=== PATIENT | male | born 1965 | race Caucasian/White ===

== ENCOUNTER 2017-02-05 13:27 | Inpatient (IN) | payer BC ==
--- NOTE | ~2017-02-05 | DS ---
Discharge Summary [place] [id number] [facility] [place]. [address] NAME: IDALIA NJ : 61 STATUS : DIS Charlene PAT#: [id number] AGE: 51 ADM/REG DATE : 02/05/17 MR#: [id number] REPORT SERV DATE: 02/08/17 DICTATED BY: JR. CALHOUN WILLIAM JOHN DATE: 02/07/17 REPORT STATUS : Draft TRANSCRIBED BY: RAMA DATE: 02/07/17 ADMISSION DATE: 02/05/2017 DISCHARGE DATE: 02/07/2017 DISCHARGE DIAGNOSES: Include: 1. New-onset diabetes mellitus with diabetic ketoacidosis with a hemoglobin A1c of 10.9. 2. Hypokalemia. 3. Acute kidney injury, which is resolved. 4. Hypothyroidism. 5. Hyponatremia. OPERATIONS/PROCEDURES AND TREATMENTS: Include: 1. Portable chest x-ray done 02/05/2017, which showed no acute cardiopulmonary abnormality. 2. Diabetic education. DISCHARGE MEDICATION: Include: 1. Humalog FlexPen 10 units before meals, holding for premeal finger blood sugar less than 100. 2. Sliding scale Humalog insulin level 2. 3. Synthroid 250 mcg every morning. 4. Lisinopril/hydrochlorothiazide 20/25, one tablet orally daily. 5. Singulair 10 mg orally daily. 6. Omeprazole 20 mg orally twice a day. 7. Zocor 20 mg orally daily. 8. Lantus insulin 30 units at bedtime. 9. Metformin 500 b.i.d. HOSPITAL COURSE: The patient is a 51-year-old white male with past medical history of hypothyroidism, kidney stones, and hypertension, who has had increased dizziness, nausea, and decreased oral intake as well as 20 pounds weight loss over the preceding months. He had been also experiencing polydipsia and polyuria. He had recently been started on metformin, but came to the emergency room for further assistance. On admission, his temperature was 97.6, blood pressure 117/61, heart rate 71, respiratory rate 16. Exam was overall unremarkable, except high anion gap, low bicarbonate, and low sodium. For exact details of the admission history, physical, and presenting data, please see Dr. Wilkinson's dictated history and physical. The patient was admitted to the Clinical Decision Unit. He was started on Levemir insulin 12 units at night with 5 units of Humalog before meals on a sliding scale. He also was given IV fluids and frequent electrolyte collection. The patient's anion gap resolved quickly on this regimen; however, his blood sugars were still under poor control. I increased his long-acting insulin to 30 units at the hour of sleep, premeal to 10 units, and sliding scale level 3. With this regimen, the patient's blood sugars were generally in the 150-250 range. The patient was seen by diabetic education, received teaching. He will be discharged home to follow up with his primary care physician, Dr. Pradeep Moore. Discharge Summary [address] [place]. [address] NAME: IDALIA NJ : 61 STATUS : DIS Charlene PAT#: [id number] AGE: 51 ADM/REG DATE : 02/05/17 MR#: [id number] REPORT SERV DATE: 02/08/17 DICTATED BY: JR. CALHOUN WILLIAM JOHN DATE: 02/07/17 REPORT STATUS : Draft TRANSCRIBED BY: RAMA DATE: 02/07/17 As the patient's acute kidney injury, this resolved with IV fluids. As the patient's hypertension, he was maintained on his HAIM inhibitor and hydrochlorothiazide. The remainder of the patient's health problems remained stable. In addition, he will be discharged home today, 02/07/2017 in good condition and will follow up with Dr. Pradeep Moore in one week. DISCHARGE DIET: ADA diet. ACTIVITY: As tolerated. For discharge exam and laboratory, please see daily progress note. WJF/RAMA Alex Calhoun Jr, MD / [id number] CC: Alex Calhoun Jr, MD R. Edward [place]ers
--- NOTE | ~2017-02-05 | HP ---
History And Physical [place] [id number] [facility] [place]. [address] NAME: IDALIA NJ : 61 STATUS : ADM Charlene PAT#: [id number] AGE: 51 ADM/REG DATE : 02/05/17 MR#: [id number] REPORT SERV DATE: 02/05/17 DICTATED BY: YULIANA WILKINSON DATE: 02/05/17 REPORT STATUS : Draft TRANSCRIBED BY: MODSheri DATE: 02/05/17 DATE OF ADMISSION: 02/05/2017 CHIEF COMPLAINT: High blood sugars and feeling sick. HISTORY OF PRESENT ILLNESS: The patient is a 51-year-old male with past medical history of hypothyroidism, kidney stones, and hypertension, who reports over the last few weeks that he has been feeling increased dizziness, sick to the stomach with decreased p.o. intake. He has also noticed that he has had a 20-pound weight loss and has had recently changed from drinking diet sodas to water but reports he has been drinking an increased amount of water which has kept him waking up at night. He believes that because he was drinking so much water and wake up at night, he thought that this was the cause for his weakness and overall just generalized fatigue. The patient was recently started on metformin approximately 48 hours ago but was still having dizziness episodes today and found to have a blood sugar in the 400 plus. Symptoms for this type dizziness extreme have been occurring for approximately last week and this generalized weakness. No pain. Symptoms were of moderate severity. No radiating symptoms. No pressure, cramping, sharp burning pain associated with mild decreased intake. No headaches, nausea, or vomiting, but did have increased urination and polydipsia. No diarrhea, fevers, weakness, cough, or infections. No recent respiratory infections or boils reported. Did have gastroenteritis approximately a month ago that has self resolved. Symptoms are not worsened by anything but no relieving symptoms. Additional 10-point review of systems negative except that noted in the HPI. PAST MEDICAL HISTORY: Hypertension, kidney stones, and thyroid. No surgeries. SOCIAL HISTORY: No smoking, alcohol, or illicits. Works at [employer] but no radiation contact per patient. ALLERGIES: TO PENICILLIN WHICH CAUSED A RASH WHEN HE WAS YOUNG. FAMILY HISTORY: Noted for coronary disease and hypertension in the family members. HOME MEDICATIONS: Pepto-Bismol. Synthroid increased from 125 mcg to 250 recently, does have followup in approximately three weeks for followup. Zestoretic. Glucophage. Singulair. Prilosec. Zocor. PHYSICAL EXAMINATION: VITAL SIGNS: The patient's blood pressure is 117/61, temperature 97.6, pulse 71, respirations 16, and O2 sats 99%. Orthostatic blood pressures within normal limits. GENERAL: No acute distress. Calm, pleasant, obese, well developed, well nourished. HEENT: Eyes, no scleral icterus. EOMI. ENT, dry mucous membranes. Tongue midline. RESPIRATORY: Clear to auscultation. No wheezes, rales, or rhonchi. CV: Regular rate. No rubs or gallops. No pedal edema. GI: Soft, nontender, and nondistended. Bowel sounds positive. History And Physical [address] [address] NAME: IDALIA NJ : 61 STATUS : ADM Charlene PAT#: [id number] AGE: 51 ADM/REG DATE : 02/05/17 MR#: [id number] REPORT SERV DATE: 02/05/17 DICTATED BY: YULIANA WILKINSON DATE: 02/05/17 REPORT STATUS : Draft TRANSCRIBED BY: RAMA DATE: 02/05/17 : Deferred. MUSCULOSKELETAL: Moves all extremities x4. Sensation is still grossly intact in lower extremities. Moves all extremities x4 with equal strength. SKIN: Warm and dry. LYMPH: No cervical or supraclavicular lymphadenopathy. HEME: No bleeding or bruising. NEUROLOGIC: Symmetrical smile, vocal gerber. Strength in upper and lower extremities bilaterally. No asterixis or resting tremor. Sensations in lower extremities to light palpation, equal bilaterally with no lesions on lower extremities. PSYCHIATRIC: Appropriate mood and affect. LABORATORY DATA: Sodium 130 with a glucose of 409, corrects to approximately 135 to 137, BUN and creatinine 28 and 1.36, chloride 90, potassium 3.5, bicarb 16, H and H 15.1 and 42.4 with a WBC of 10.9 and platelets 344. Moderate acetone in blood UA and no leukocyte esterase or nitrites. Chest x-ray, no acute cardiopulmonary findings. A pH on ABG 7.34, pCO2 of 25, O2 of 103, and bicarb 13.2. ASSESSMENT AND PLAN: 1. New onset diabetic ketoacidosis. 2. Acute kidney injury. 3. Hypertension. 4. Hypothyroidism. 5. Pseudohyponatremia. 6. Hypokalemia. PLAN: 1. For DKA, the patient was a new diagnosis for diabetes, started on metformin; however, we will need to start Levemir sliding scale insulin with meals. The patient has had fairly good improvement with insulin without drip as hepatitis starting to return. Blood sugar down to 200s. We will do serial BMP monitoring. Initiated long-acting with sliding scale insulin and monitor bicarb for resolution of DKA symptoms. 2. NARDA. IV fluids. Treat underlying DKA. Check urine lytes, on HAIM inhibitor and HCTZ, likely volume depleted with positive ketones and glucosuria. Monitor clinically. 3. Hypertension on HAIM inhibitor and HCTZ. 4. Hypothyroidism on Synthroid, recently increased, understands, continued to have close followup with PCP. 5. Pseudohyponatremia. When corrected, first blood sugar corrects to 135 and 137. We will continue to monitor. 6. Hypokalemia. Replace p.o. as tolerated and also serial monitor in the presence of mild DKA. All questions were answered with the patient and family at bedside. DDN/MODL Yuliana Wilkinson MD History And Physical [address] [address] NAME: IDALIA NJ : 61 STATUS : ADM Charlene PAT#: [id number] AGE: 51 ADM/REG DATE : 02/05/17 MR#: [id number] REPORT SERV DATE: 02/05/17 DICTATED BY: YULIANA WILKINSON DATE: 02/05/17 REPORT STATUS : Draft TRANSCRIBED BY: MODL DATE: 02/05/17 / [id number] CC: Emery Diane MD
[2017-02-05 11:37] LABS: BASOPHILS 0.1 %; BASOPHILS ABSOLUTE 0.01 10/3/uL (0.0-0.16); EOSINOPHILS 0 %; HEMATOCRIT 42.4 % (40.0-51.0); HEMOGLOBIN 15.1 g/dL (13.6-17.8); IMMATURE GRANULOCYTES 0.5 %; IMMATURE GRANULOCYTES ABSOLUTE 0.06 10/3/uL (0.0-0.11); LYMPHOCYTES 11.2 %; LYMPHOCYTES ABSOLUTE 1.23 10/3/uL (0.67-4.30); MEAN CORPUS HGB CONC 35.6 g/dL (32.0-36.0); MEAN CORPUSCULAR HEMOGLOB 29.7 pg (26.0-34.0); MEAN CORPUSCULAR VOLUME 83.5 fL (80-100); MEAN PLATELET VOLUME 10.6 fL (9.2-13.0); MONOCYTES 7.2 %; MONOCYTES ABSOLUTE 0.79 10/3/uL (0.21-1.20); NEUTROPHILS ABSOLUTE 8.85 10/3/uL (2.02-8.40); PLATELET COUNT 344 10/3/uL (150-400); RBC DISTRIBUTION WIDTH 12.2 % (12.0-16.0); RED CELL COUNT 5.08 10/6/uL (4.7-6.1); WHITE BLOOD CELLS 10.9 10/3/uL (4.5-10.5)
[2017-02-05 11:38] LABS: MANUAL DIFF NO %
[2017-02-05 11:43] LABS: ASCORBIC ACID (UR NOT ORDER) NEG (NEG); BILIRUBIN, URINE NEGATIVE (NEG); ER URINALYSIS TAT 0 Hrs 12 Mins; KETONE, URINE 80 MG/DL (NEG); LEUKOCYTE ESTERASE(NOT OR NEG (NEG); NITRITE (URINE) NEG (NEG); WBC (NOT ORDERED) (RFLEX) 1 (0-5)
[2017-02-05 11:50] LABS: ACETONE MODERATE
[2017-02-05 11:59] LABS: A/G RATIO 1.4 (0.7-1.9); ALBUMIN 4.4 G/DL (3.5-5.0); ALKALINE PHOSPHATASE 120 U/L (45-117); BUN (BLOOD UREA NITROGEN) 28 MG/DL (6-23); CALCIUM, SERUM 9.2 MG/DL (8.5-10.4); CHLORIDE, SERUM 90 MMOL/L (96-112); CO2 (CARBON DIOXIDE) 16 MMOL/L (24-34); CREATININE 1.36 MG/DL (0.70-1.30); GFR AFRICAN AMERICAN 68 ML/MIN (>=60); GFR NON AFRICAN AMERICAN 59 ML/MIN (>=60); GLOBULIN 3.1 G/DL (2.5-4.1); POTASSIUM, SERUM 3.5 MMOL/L (3.5-5.3); SGOT(AST) 6 U/L (5-40); SGPT(ALT) 25 U/L (5-65); SODIUM, SERUM 130 MMOL/L (135-148); TOTAL BILIRUBIN 1.3 MG/DL (0-1.2); TOTAL PROTEIN 7.5 G/DL (6.0-8.5)
[2017-02-05 12:00] LABS: GLUCOSE, SERUM 409 MG/DL (60-99)
[~2017-02-05 13:27] MED LIST: GLUCPH PO; PEPTO BISMOL LIQ1 ML PO; PRILO PO; SINGULAIR1 PO; SYNTHROID200 MCG PO; ZESTORETIC1 TA1 PO; ZOCOR20 PO
[2017-02-05 14:33] LABS: BE (BASE EXCESS) -10.6 MEQ/L (0 +/- 2.5); HCO3 (ACTUAL BICARBONATE) 13.2 MEQ/L (23-27); HEMOBLOGIN CONTENT 14.9 G/DL (14-18); INSTRUMENT SERIAL # 8087; METHEMOGLOBIN 0.2 % (0-3); O2 CONTENT 20.3 VOL% (18-24); PCO2 (CO2 TENSION) 25 MMHG (35-45); PO2 (O2 TENSION) 103 MMHG (79-93); SAMPLE Arterial; pH 7.34 (7.37-7.43)
[2017-02-05 20:12] LABS: BUN (BLOOD UREA NITROGEN) 25 MG/DL (6-23); CALCIUM, SERUM 9.1 MG/DL (8.5-10.4); CHLORIDE, SERUM 96 MMOL/L (96-112); CO2 (CARBON DIOXIDE) 17 MMOL/L (24-34); CREATININE 1.24 MG/DL (0.70-1.30); GFR AFRICAN AMERICAN 76 ML/MIN (>=60); GFR NON AFRICAN AMERICAN 66 ML/MIN (>=60); POTASSIUM, SERUM 3.6 MMOL/L (3.5-5.3); SODIUM, SERUM 133 MMOL/L (135-148)
[2017-02-05 20:13] LABS: GLUCOSE, SERUM 293 MG/DL (60-99)
[2017-02-06 05:48] LABS: BUN (BLOOD UREA NITROGEN) 22 MG/DL (6-23); CALCIUM, SERUM 8.7 MG/DL (8.5-10.4); CHLORIDE, SERUM 101 MMOL/L (96-112); CO2 (CARBON DIOXIDE) 20 MMOL/L (24-34); CREATININE 1.05 MG/DL (0.70-1.30); GFR AFRICAN AMERICAN 93 ML/MIN (>=60); GFR NON AFRICAN AMERICAN 81 ML/MIN (>=60); POTASSIUM, SERUM 3.7 MMOL/L (3.5-5.3); SODIUM, SERUM 133 MMOL/L (135-148)
[2017-02-06 05:49] LABS: GLUCOSE, SERUM 178 MG/DL (60-99)
[2017-02-06 07:00] LABS: BASOPHILS 0.2 %; BASOPHILS ABSOLUTE 0.02 10/3/uL (0.0-0.16); EOSINOPHILS 0.7 %; EOSINOPHILS ABSOLUTE 0.06 10/3/uL (0.0-0.53); HEMATOCRIT 39.6 % (40.0-51.0); HEMOGLOBIN 13.8 g/dL (13.6-17.8); IMMATURE GRANULOCYTES 0.3 %; IMMATURE GRANULOCYTES ABSOLUTE 0.03 10/3/uL (0.0-0.11); LYMPHOCYTES 19.3 %; LYMPHOCYTES ABSOLUTE 1.67 10/3/uL (0.67-4.30); MANUAL DIFF NO %; MEAN CORPUS HGB CONC 34.8 g/dL (32.0-36.0); MEAN CORPUSCULAR HEMOGLOB 28.8 pg (26.0-34.0); MEAN CORPUSCULAR VOLUME 82.7 fL (80-100); MEAN PLATELET VOLUME 10.3 fL (9.2-13.0); MONOCYTES ABSOLUTE 0.69 10/3/uL (0.21-1.20); NEUTROPHILS 71.5 %; NEUTROPHILS ABSOLUTE 6.18 10/3/uL (2.02-8.40); PLATELET COUNT 276 10/3/uL (150-400); RBC DISTRIBUTION WIDTH 12.5 % (12.0-16.0); RED CELL COUNT 4.79 10/6/uL (4.7-6.1); WHITE BLOOD CELLS 8.7 10/3/uL (4.5-10.5)
[2017-02-07 06:35] LABS: BUN (BLOOD UREA NITROGEN) 14 MG/DL (6-23); CALCIUM, SERUM 8.8 MG/DL (8.5-10.4); CHLORIDE, SERUM 99 MMOL/L (96-112); CO2 (CARBON DIOXIDE) 27 MMOL/L (24-34); CREATININE 0.81 MG/DL (0.70-1.30); GFR AFRICAN AMERICAN 118 ML/MIN (>=60); GFR NON AFRICAN AMERICAN 101 ML/MIN (>=60); GLUCOSE, SERUM 168 MG/DL (60-99); POTASSIUM, SERUM 3.4 MMOL/L (3.5-5.3); SODIUM, SERUM 136 MMOL/L (135-148)
[2017-02-07] MEDS ORDERED: LANTUS SC (16:29)
[2017-02-07] MEDS ORDERED: HUMALOG SC ×2 (16:33→16:37)
[2017-06-13] MEDS ORDERED: GLUCPH PO (21:18)
[2017-06-13] MEDS ORDERED: ZESTORETIC1 TA1 PO (21:19)
[2017-06-13] MEDS ORDERED: LEVOTHYROXIN125 MCG PO (21:19)
[2017-06-13] MEDS ORDERED: LANTUSCART SC (21:20)
[2017-06-13] MEDS ORDERED: HUMALOGPEN SC (21:20)
[2017-06-13] MEDS ORDERED: SINGULAIR1 PO (21:20)
[2017-06-13] MEDS ORDERED: ZOCOR20 PO (21:21)
[2017-06-13] MEDS ORDERED: PRILO PO (21:21)
[2017-06-13] MEDS ORDERED: ACET500CAP PO (21:22)
[2017-06-13] MEDS ORDERED: VITC500 PO (21:23)
[2017-06-13] MEDS ORDERED: FLONASE NAS (21:23)
[2017-06-16] MEDS ORDERED: FLAG500TAB PO (18:46)
[2017-06-16] MEDS ORDERED: LEVAQUIN5T PO (18:46)
[2017-06-16] MEDS ORDERED: PCET PO (18:47)
[2017-07-31] MEDS ORDERED: LEVAQUIN5T PO (08:48)
== END 2017-02-07 17:48 | disposition home or self-care (01) | DRG 638 ==
LOC: ER 13:27 → CDU1 15:34 → CDU2 16:03
PROVIDERS: Internal Medicine; Nurse Practitioner; Student in an Organized Health Care Education/Training Program
DX: E13.10 Other specified diabetes mellitus with ketoacidosis without coma (principal); N17.9 Acute kidney failure, unspecified; E87.1 Hypo-osmolality and hyponatremia; E87.6 Hypokalemia; E03.9 Hypothyroidism, unspecified; Z87.442 Personal history of urinary calculi; I10 Essential (primary) hypertension; Z88.0 Allergy status to penicillin; Z82.49 Family history of ischemic heart disease and other diseases of the circulatory system
CPT/HCPCS: 36600; 71010; 80048; 80053; 81001; 82009; 82805; 82962; 83036; 83690; 83735; 85025; 96374; 99285; A9270-GY

== ENCOUNTER 2017-03-06 09:22 | Day surgery (SDC) | payer BC ==
--- NOTE | ~2017-03-06 | EGD ---
EGD REPORT [facility] [address] [address] NAME: MARK NJ : 61 STATUS : REG [facility] PAT#: [id number] AGE: 51 ADM/REG DATE : 03/06/17 MR#: [id number] REPORT SERV DATE: 03/06/17 DICTATED BY: ALFREDO MELENDEZ DATE: 03/06/17 REPORT STATUS : Draft TRANSCRIBED BY: [facility] DATE: 03/06/17 Endoscopy Center Patient Name: Mark Nj Date of : 1965 Attending MD: NICHOLAS MELENDEZ MD Procedure Date No Time: 03/06/2017 Procedure: Colonoscopy Indications: Screening for colorectal malignant neoplasm, This is the patient's first colonoscopy Referring MD: Pradeep Moore Medicines: See the Anesthesia note for documentation of the administered medications Complications: No immediate complications. Estimated blood loss: Minimal. Procedure: Pre-Anesthesia Assessment: - ASA Grade Assessment: III - A patient with severe systemic disease. - Prior to the procedure, a History and Physical was performed, and patient medications and allergies were reviewed. The patient's tolerance of previous anesthesia was also reviewed. The risks and benefits of the procedure and the sedation options and risks were discussed with the patient. All questions were answered, and informed consent was obtained. Prior Anticoagulants: The patient has taken no previous anticoagulant or antiplatelet agents. After reviewing the risks and benefits, the patient was deemed in satisfactory condition to undergo the procedure. After I obtained informed consent, the scope was passed under direct vision. Throughout the procedure, the patient's blood pressure, pulse, and oxygen saturations were monitored continuously. The PCF [id number] was introduced through the anus and advanced to the cecum, identified by appendiceal orifice and ileocecal valve. The ileocecal valve, appendiceal orifice and rectum were photographed. The entire colon was examined. The colonoscopy was performed without difficulty. The patient tolerated the procedure well. The quality of the bowel preparation was adequate. Findings: The perianal exam was abnormal. Findings include non-thrombosed external hemorrhoids and internal hemorrhoids that prolapse with straining, but require manual replacement into the anal canal (Grade III). A sessile polyp was found at 10 cm proximal to the anus. The polyp was 8 EGD REPORT [place] [address] [place]. [address] NAME: MARK NJ : 61 STATUS : REG [facility]#: [id number] AGE: 51 ADM/REG DATE : 03/06/17 MR#: [id number] REPORT SERV DATE: 03/06/17 DICTATED BY: ALFREOD MELENDEZ DATE: 03/06/17 REPORT STATUS : Draft TRANSCRIBED BY: [facility] DATE: 03/06/17 mm in size. The polyp was removed with a hot snare. Resection and retrieval were complete. A 35 mm multi-lobulated polypoid lesion was found at 5 cm proximal to the anus. No bleeding was present. The polyp was removed with a piecemeal technique using a hot snare. Resection was complete, but the polyp tissue was only partially retrieved. Non-bleeding external and internal hemorrhoids were found. Many medium-mouthed diverticula were found in the entire colon. Impression: - Non-thrombosed external hemorrhoids and internal hemorrhoids that prolapse with straining, but require manual replacement into the anal canal (Grade III) found on perianal exam. - One 8 mm polyp at 10 cm proximal to the anus. Resected and retrieved. - Tumor at 5 cm proximal to the anus. Complete removal was accomplished. - Non-bleeding external and internal hemorrhoids. - Moderate diverticulosis in the entire examined colon. Recommendation: - Patient has a contact number available for emergencies. The signs and symptoms of potential delayed complications were discussed with the patient. Return to normal activities tomorrow. Written discharge instructions were provided to the patient. - High fiber diet indefinitely. - Discharge patient to home. - Continue present medications. - Await pathology results. - Repeat colonoscopy for surveillance based on pathology results. Procedure Code(s): --- Professional --- 61940, Colonoscopy, flexible, proximal to splenic flexure; with removal of tumor(s), polyp(s), or other lesion(s) by snare technique Diagnosis Code(s): --- Professional --- K64.2, Third degree hemorrhoids K64.4, Residual hemorrhoidal skin tags K57.30, Diverticulosis of large intestine without perforation or abscess without bleeding D12.6, Benign neoplasm of colon, unspecified D49.0, Neoplasm of unspecified behavior of digestive system Z12.11, Encounter for screening for malignant neoplasm of colon EGD REPORT [facility] [address] [address] NAME: MARK NJ : 61 STATUS : REG [facility]#: [id number] AGE: 51 ADM/REG DATE : 03/06/17 MR#: [id number] REPORT SERV DATE: 03/06/17 DICTATED BY: ALFREDO MELENDEZ DATE: 03/06/17 REPORT STATUS : Draft TRANSCRIBED BY: [employer] DATE: 03/06/17 CPT copyright 2013 [employer]. All rights reserved. The codes documented in this report are preliminary and upon warehouse foreman review may be revised to meet current compliance requirements. NICHOLAS MELENDEZ MD 03/06/2017 12:09 PM This report has been signed electronically. Number of Addenda: 0 Note Initiated On: 03/06/2017 11:23 AM Scope Withdrawal Time 0 hours 16 minutes 23 seconds [id number] [id number]
[~2017-03-06 09:22] MED LIST changes: +HUMALOG SC; +LANTUS SC
[2017-06-13] MEDS ORDERED: GLUCPH PO (21:18)
[2017-06-13] MEDS ORDERED: ZESTORETIC1 TA1 PO (21:19)
[2017-06-13] MEDS ORDERED: LEVOTHYROXIN125 MCG PO (21:19)
[2017-06-13] MEDS ORDERED: LANTUSCART SC (21:20)
[2017-06-13] MEDS ORDERED: SINGULAIR1 PO (21:20)
[2017-06-13] MEDS ORDERED: HUMALOGPEN SC (21:20)
[2017-06-13] MEDS ORDERED: PRILO PO (21:21)
[2017-06-13] MEDS ORDERED: ZOCOR20 PO (21:21)
[2017-06-13] MEDS ORDERED: ACET500CAP PO (21:22)
[2017-06-13] MEDS ORDERED: VITC500 PO (21:23)
[2017-06-13] MEDS ORDERED: FLONASE NAS (21:23)
[2017-06-16] MEDS ORDERED: LEVAQUIN5T PO (18:46)
[2017-06-16] MEDS ORDERED: FLAG500TAB PO (18:46)
[2017-06-16] MEDS ORDERED: PCET PO (18:47)
[2017-07-31] MEDS ORDERED: LEVAQUIN5T PO (08:48)
== END 2017-03-06 23:59 | disposition home or self-care (01) ==
LOC: DMU 09:22
PROVIDERS: Internal Medicine Gastroenterology
PROC: 0DBQ8ZZ Excision of Anus, Via Natural or Artificial Opening Endoscopic (ICD-10-PCS; principal; 2017-03-06 11:00)
DX: Z12.11 Encounter for screening for malignant neoplasm of colon (principal); C21.0 Malignant neoplasm of anus, unspecified; K57.30 Diverticulosis of large intestine without perforation or abscess without bleeding; K64.2 Third degree hemorrhoids; K64.4 Residual hemorrhoidal skin tags; Z79.4 Long term (current) use of insulin; Z79.899 Other long term (current) drug therapy
CPT/HCPCS: 82962; 88305; 88341; 88342

== ENCOUNTER 2017-05-06 10:18 | Inpatient (IN) | payer BC ==
[2017-04-30 14:37] LABS: HEMATOCRIT 41.7 % (40.0-51.0)
[2017-04-30 14:53] LABS: CALCIUM, SERUM 9.1 MG/DL (8.5-10.4); CHLORIDE, SERUM 105 MMOL/L (96-112); CO2 (CARBON DIOXIDE) 28 MMOL/L (24-34); CREATININE 1.22 MG/DL (0.70-1.30); GFR AFRICAN AMERICAN 78 ML/MIN (>=60); GFR NON AFRICAN AMERICAN 67 ML/MIN (>=60); GLUCOSE, SERUM 193 MG/DL (60-99); SODIUM, SERUM 140 MMOL/L (135-148)
[2017-04-30 14:54] LABS: BUN (BLOOD UREA NITROGEN) 19 MG/DL (6-23); POTASSIUM, SERUM 4.3 MMOL/L (3.5-5.3)
--- NOTE | ~2017-05-06 | DS ---
Discharge Summary [facility] [address] [facility] [place]. [address] NAME: IDALIA NJ : 61 STATUS : DIS IN PAT#: [id number] AGE: 51 ADM/REG DATE : 05/06/17 MR#: [id number] REPORT SERV DATE: 05/21/17 DICTATED BY: JESUS CHANDLER DATE: 05/20/17 REPORT STATUS : Draft TRANSCRIBED BY: MODL DATE: 05/20/17 Data Collection from hospitalization DISCHARGE DIAGNOSIS(ES): 1. Rectal cancer. 2. Hypertension. 3. Insulin-dependent diabetes mellitus. 4. Hypothyroidism. 5. Gastroesophageal reflux disease. 6. Asthma. CONSULTATIONS: None. PROCEDURES PERFORMED: Robotic proctectomy with end-to-side coloanal anastomosis and diverting ileostomy, 05/06/2017. PATHOLOGY: Rectum resection-focal residual tubulovillous adenoma without high-grade dysplasia, margins free; no residual high-grade dysplasia or carcinoma seen; 19 lymph nodes free of tumor (0/19); diverticulosis; colon anastomotic ring-no dysplasia or carcinoma seen. MEDICATIONS: Tylenol 1000 mg every six hours as needed, Lantus 30 units subcutaneously at bedtime, Humalog injection insulin as instructed, Synthroid 200 mcg every morning, Zestoretic one tablet every morning, Glucophage 500 mg twice a day, Singulair 10 mg at bedtime, Prilosec 20 mg twice a day as needed, Percocet 5/325 one tablet every four hours as needed, and Zocor 20 mg at bedtime. CONDITION AT DISCHARGE: Stable. DISPOSITION: The patient was discharged home to be followed by home health care on an 1800- calorie diabetic diet with activities as instructed. He would follow up with me in 10 to 14 days following discharge. HOSPITAL COURSE: This is a 51-year-old man who presented with T1 rectal cancer with lymphovascular invasion. Radical excision was offered to him with possible temporary diverting ileostomy. He agreed to proceed and was admitted to the hospital at this time for further evaluation and treatment. Upon admission, he was taken to the operating room where he underwent the above-mentioned procedure. He tolerated this well and there were no complications. On postop day #1, he had no new complaints. He was afebrile. His diet was advanced. Over the next couple of days, he had no nausea or vomiting. He was making slow progress. Discharge planning was performed. IV fluids were discontinued on 05/10/2017. His abdomen was soft and nondistended. His ostomy was viable. Discharge instructions were given. Due to his improved and stable condition, he was discharged home to be followed by home health care with the above-stated instructions. Information collected by: Jalyn Pathak Discharge Summary [address] [address] NAME: IDALIA NJ : 61 STATUS : DIS IN PAT#: [id number] AGE: 51 ADM/REG DATE : 05/06/17 MR#: [id number] REPORT SERV DATE: 05/21/17 DICTATED BY: JESUS CHANDLER DATE: 05/20/17 REPORT STATUS : Draft TRANSCRIBED BY: RAMA DATE: 05/20/17 I submit the above information as my discharge summary. JOSE/RAMA Pavan Chandler M.D. / [id number] CC: Jannie Whitney
--- NOTE | ~2017-05-06 | OP ---
Record Of Operation [facility] [address] [place]. [address] NAME: IDALIA NJ : 61 STATUS : ADM IN [facility]#: [id number] AGE: 51 ADM/REG DATE : 05/06/17 MR#: [id number] REPORT SERV DATE: 05/08/17 DICTATED BY: JESUS CHANDLER DATE: 05/08/17 REPORT STATUS : Draft TRANSCRIBED BY: MODL DATE: 05/08/17 DATE OF PROCEDURE: 05/06/2017 PREOPERATIVE DIAGNOSIS: Early rectal carcinoma. POSTOPERATIVE DIAGNOSIS: Early rectal carcinoma. PROCEDURES: Robotic proctectomy with end-to-side coloanal anastomosis and diverting ileostomy. SURGEON: Pavan Chandler M.D. ANESTHESIA: General. ESTIMATED BLOOD LOSS: Less than 50 mL. INDICATION: Mr. Nj is a 51-year-old male who presented with a T1 rectal cancer with lymphovascular invasion. Radical excision was offered to him with possible temporary diverting ileostomy. The risks including, but not limited to bleeding, infection, cardiac and pulmonary complications, DVT, genitourinary dysfunction, stoma problems, abdominal wall complications, and recuperation among others were discussed with him and he expressed understanding and his questions were answered and he agreed to proceed. DESCRIPTION OF PROCEDURE: The patient was taken to the operating room and placed in a supine position. General anesthesia was induced. Lower extremities were placed in stirrups and well padded. The abdomen and perineum were prepped and draped and a small stab incision was made in the umbilicus and a Veress needle was utilized to obtain insufflation to 15 mmHg and then a 12 mm incision was made in the right upper quadrant and 12 mm trocar was placed using a visual port approach and then additional trocars were placed under direct vision, a 12 mm in the right lower quadrant, a 5 mm assistant professor of nursing port in the epigastrium, and an 8 mm in the right supraumbilical area and then two left lateral 8 mm trocars. The patient was placed in steep Trendelenburg and tilted to the right and the inferior mesenteric vein was identified proximally and it was clipped, divided, and ligated and the medial-lateral dissection was made of the descending colon up to almost the area of the pancreas and then down to the inferior mesenteric artery which was clipped and divided and then I dissected medial to lateral and identified the left ureter and gonadals and then mobilized the splenic flexure on the lateral position and then dissected out the rectum using a total mesorectal nerve sparing technique down to the pelvic floor where three successive firings of the robotic stapler thick load was performed. Hemostasis was excellent and then I undocked the robot, and used standard laparoscopic approach to finish the mobilization of the flexure down across to the mid transverse colon and then I brought the specimen out through the wound protector at the site of the proposed stoma having removed a [place] fl[place] of skin and traversing anterior and posterior rectus. I then identified good blood supply and divided the specimen with a Roxana clamp on the specimen side, and this was passed off to the pathologist to identify the site of the excision with a good margin and then I placed a 29 anvil up to the antimesenteric border of the colon and closed off the colon using a JOSE GUADALUPE stapler, and then Record Of Operation [address] [place]. [address] NAME: IDALIA NJ : 61 STATUS : ADM IN [facility]#: [id number] AGE: 51 ADM/REG DATE : 05/06/17 MR#: [id number] REPORT SERV DATE: 05/08/17 DICTATED BY: JESUS CHANDLER DATE: 05/08/17 REPORT STATUS : Draft TRANSCRIBED BY: RAMA DATE: 05/08/17 passed this down into the pelvis and placed the stapler through the rectum and fired the stapler, and there were two complete rings and negative leak test. The anastomosis was very low, and therefore, I decided to do a diverting ileostomy and I did this by bringing the ilium out through the site right brought out the specimen and I closed down the fascia to the appropriate size using 0 Vicryl and also closed the large trocar sites with 0 Vicryl and then I closed the skin in layers with 3-0 Vicryl and then placed dressings and matured the stoma with 3-0 chromic. The counts were correct. The patient tolerated the procedure well. YUDELKA/RAMA Pavan Chandler M.D. / [id number] CC: Jannie Whitney M.D.
[2017-05-07 07:04] LABS: BASOPHILS 0 %; EOSINOPHILS 0 %; HEMATOCRIT 42.3 % (40.0-51.0); HEMOGLOBIN 14.2 g/dL (13.6-17.8); IMMATURE GRANULOCYTES 0.3 %; IMMATURE GRANULOCYTES ABSOLUTE 0.03 10/3/uL (0.0-0.11); LYMPHOCYTES 5.3 %; MANUAL DIFF NO %; MEAN CORPUS HGB CONC 33.6 g/dL (32.0-36.0); MEAN CORPUSCULAR HEMOGLOB 29.2 pg (26.0-34.0); MEAN PLATELET VOLUME 9.9 fL (9.2-13.0); MONOCYTES 11.4 %; MONOCYTES ABSOLUTE 1.28 10/3/uL (0.21-1.20); NEUTROPHILS ABSOLUTE 9.36 10/3/uL (2.02-8.40); PLATELET COUNT 280 10/3/uL (150-400); RBC DISTRIBUTION WIDTH 12.1 % (12.0-16.0); RED CELL COUNT 4.86 10/6/uL (4.7-6.1); WHITE BLOOD CELLS 11.3 10/3/uL (4.5-10.5)
[2017-05-07 07:24] LABS: BUN (BLOOD UREA NITROGEN) 13 MG/DL (6-23); CALCIUM, SERUM 8.6 MG/DL (8.5-10.4); CHLORIDE, SERUM 98 MMOL/L (96-112); CO2 (CARBON DIOXIDE) 27 MMOL/L (24-34); CREATININE 1.09 MG/DL (0.70-1.30); GFR AFRICAN AMERICAN 89 ML/MIN (>=60); GFR NON AFRICAN AMERICAN 77 ML/MIN (>=60); GLUCOSE, SERUM 272 MG/DL (60-99); POTASSIUM, SERUM 4.1 MMOL/L (3.5-5.3); SODIUM, SERUM 132 MMOL/L (135-148)
[2017-05-10 05:00] LABS: BASOPHILS 0.1 %; BASOPHILS ABSOLUTE 0.01 10/3/uL (0.0-0.16); EOSINOPHILS 6.1 %; HEMOGLOBIN 11.7 g/dL (13.6-17.8); IMMATURE GRANULOCYTES 0.5 %; IMMATURE GRANULOCYTES ABSOLUTE 0.04 10/3/uL (0.0-0.11); LYMPHOCYTES 17.7 %; LYMPHOCYTES ABSOLUTE 1.45 10/3/uL (0.67-4.30); MEAN CORPUS HGB CONC 33.3 g/dL (32.0-36.0); MEAN CORPUSCULAR VOLUME 87.1 fL (80-100); MEAN PLATELET VOLUME 9.3 fL (9.2-13.0); MONOCYTES 8.9 %; MONOCYTES ABSOLUTE 0.73 10/3/uL (0.21-1.20); NEUTROPHILS 66.7 %; NEUTROPHILS ABSOLUTE 5.47 10/3/uL (2.02-8.40); PLATELET COUNT 258 10/3/uL (150-400); RBC DISTRIBUTION WIDTH 12.3 % (12.0-16.0); RED CELL COUNT 4.03 10/6/uL (4.7-6.1); WHITE BLOOD CELLS 8.2 10/3/uL (4.5-10.5)
[2017-05-10 05:05] LABS: HEMATOCRIT 35.1 % (40.0-51.0); MANUAL DIFF NO %
[2017-05-10 05:11] LABS: BUN (BLOOD UREA NITROGEN) 14 MG/DL (6-23); CALCIUM, SERUM 8.4 MG/DL (8.5-10.4); CHLORIDE, SERUM 101 MMOL/L (96-112); CO2 (CARBON DIOXIDE) 27 MMOL/L (24-34); CREATININE 0.76 MG/DL (0.70-1.30); GFR AFRICAN AMERICAN 121 ML/MIN (>=60); GFR NON AFRICAN AMERICAN 104 ML/MIN (>=60); POTASSIUM, SERUM 3.8 MMOL/L (3.5-5.3); SODIUM, SERUM 134 MMOL/L (135-148)
[2017-05-10 05:12] LABS: GLUCOSE, SERUM 206 MG/DL (60-99)
[2017-05-10] MEDS ORDERED: ACET500CAP PO (12:25)
[2017-05-10] MEDS ORDERED: PCET PO (12:26)
[2017-06-13] MEDS ORDERED: GLUCPH PO (21:18)
[2017-06-13] MEDS ORDERED: ZESTORETIC1 TA1 PO (21:19)
[2017-06-13] MEDS ORDERED: LEVOTHYROXIN125 MCG PO (21:19)
[2017-06-13] MEDS ORDERED: LANTUSCART SC (21:20)
[2017-06-13] MEDS ORDERED: HUMALOGPEN SC (21:20)
[2017-06-13] MEDS ORDERED: SINGULAIR1 PO (21:20)
[2017-06-13] MEDS ORDERED: ZOCOR20 PO (21:21)
[2017-06-13] MEDS ORDERED: PRILO PO (21:21)
[2017-06-13] MEDS ORDERED: ACET500CAP PO (21:22)
[2017-06-13] MEDS ORDERED: VITC500 PO (21:23)
[2017-06-13] MEDS ORDERED: FLONASE NAS (21:23)
[2017-06-16] MEDS ORDERED: FLAG500TAB PO (18:46)
[2017-06-16] MEDS ORDERED: LEVAQUIN5T PO (18:46)
[2017-06-16] MEDS ORDERED: PCET PO (18:47)
[2017-07-31] MEDS ORDERED: LEVAQUIN5T PO (08:48)
== END 2017-05-10 15:57 | disposition home health service (06) | DRG 331 ==
LOC: SDC/OF 10:18 → 5SO 19:31
PROVIDERS: Colon & Rectal Surgery
PROC: 0DTP4ZZ Resection of Rectum, Percutaneous Endoscopic Approach (ICD-10-PCS; 2017-05-06)
PROC: 0D1B4Z4 Bypass Ileum to Cutaneous, Percutaneous Endoscopic Approach (ICD-10-PCS; principal; 2017-05-06 12:00)
DX: C20 Malignant neoplasm of rectum (principal); E66.9 Obesity, unspecified; I10 Essential (primary) hypertension; E03.9 Hypothyroidism, unspecified; E11.9 Type 2 diabetes mellitus without complications; K21.9 Gastro-esophageal reflux disease without esophagitis; J45.909 Unspecified asthma, uncomplicated; Z68.37 Body mass index [BMI] 37.0-37.9, adult; Z88.0 Allergy status to penicillin
CPT/HCPCS: 80048; 82962; 85014; 85018; 85025; 88309; 93005; A9270-GY; J0690; J1170; J2250; J2405; J2550; J2710; J2795; J3010

== ENCOUNTER 2017-05-11 11:48 | Inpatient (IN) | payer BC ==
--- NOTE | ~2017-05-11 | CN ---
Consultation Report [facility] [address]. [address] NAME: IDALIA NJ : 61 STATUS : ADM IN [facility]#: [id number] AGE: 51 ADM/REG DATE : 05/11/17 MR#: [id number] REPORT SERV DATE: 05/11/17 DICTATED BY: JACQUELINE LONGO DATE: 05/11/17 REPORT STATUS : Draft TRANSCRIBED BY: MODL DATE: 05/11/17 PULMONARY CRITICAL CARE CONSULTATION DATE OF CONSULTATION: 05/11/2017 REASON FOR CONSULTATION: Septic shock. HISTORY OF PRESENT ILLNESS: Mr. Nj is a 51-year-old gentleman who is postop day 5 from a robotic proctectomy, coloanal anastomosis, and diverting ileostomy with Dr. Dave. He had been recovering in the postsurgical jamison and was ultimately discharged home yesterday with reports that he was walking the halls and eager to get home. This morning at home, he developed acute abdominal pain and returned to the emergency department here at [facility] where he was seen by the emergency department physician and later by the vice president corporate communications, and he was ultimately put out for a bed on the post-surgical jamison with symptom-triggered Dilaudid and Zofran and some maintenance fluids. Over the course of the afternoon and as he awaited a bed, he continued to deteriorate hemodynamically, his blood pressure continued to fall, and he became more tachycardic. A followup lactate level was sent and was elevated at greater than 6 and a procalcitonin level was measured at greater than 200. He was started on meropenem in light of his penicillin allergy and was upgraded to a bed in the intermediate care unit. Additional fluid boluses were given as well. Around 5:00 p.m., he continued to have downward trending blood pressure despite 4 L of intravenous crystalloid and a PICC line was inserted for anticipated need of vasopressors. He was ultimately started on Levophed and transferred to MICU, bed 9. His antibiotic coverage was broadened to include vancomycin, and he was re-evaluated by the vice president corporate communications. He underwent an abdominal CT, which showed some intra-abdominal air and questionable area of ischemia in the small bowel. He is now being evaluated by the surgical team for possible return to the operating room for re-exploration and washout as a potential source for septic shock. PAST MEDICAL HISTORY: Includes T1 rectal carcinoma, hypertension, nephrolithiasis, thyroid disease, and diabetes. PAST SURGICAL HISTORY: Robotic proctectomy with diverting ileostomy as above. No additional surgical history. SOCIAL HISTORY: He denies alcohol, tobacco, or illicit drug abuse. He is employed with [employer]. FAMILY HISTORY: Hypertension, dyslipidemia, and coronary artery disease in multiple first- degree relatives. ALLERGIES: PENICILLIN WITH A REACTION OF A RASH. HOME MEDICATIONS: Include Singulair 10 mg at bedtime, lisinopril and hydrochlorothiazide 20/25 mg once every morning, Prilosec 20 mg twice daily as needed for reflux symptoms, Synthroid 200 mcg every morning, Glucophage 500 mg twice a day, Zocor 20 mg p.o. at bedtime, Consultation Report [address] [place]. [address] NAME: IDALIA NJ : 61 STATUS : ADM IN PAT#: [id number] AGE: 51 ADM/REG DATE : 05/11/17 MR#: [id number] REPORT SERV DATE: 05/11/17 DICTATED BY: JACQUELINE LONGO DATE: 05/11/17 REPORT STATUS : Draft TRANSCRIBED BY: RAMA DATE: 05/11/17 Lantus 30 units subcutaneous at bedtime, Humalog 10 units subcutaneous before meals in addition to sliding scale correction factor, Tylenol as needed for pain or fever, and Percocet as needed for pain (5/325 up to every 4 hours as needed). [employer]: None. He is a full code. REVIEW OF SYSTEMS: A 14-point review of systems was completed and is negative except for those points described above in the history of present illness section of the dictation. PHYSICAL EXAMINATION: VITAL SIGNS: Heart rate is in the 130s with a blood pressure of 83 systolic, respiratory rate of 27, oxygen saturation 92% on 6 L high-flow nasal cannula. GENERAL: The patient is a male, in no acute distress. He is markedly tachypneic and appears uncomfortable, writhing around on the bed. HEENT: Head is atraumatic and normocephalic. Pupils are equal, round, and reactive to light. Extraocular movements are intact. Ears, nose, and mouth are unremarkable. His oral mucosa is moist. His oral dentition is fair. NECK: With some redundant soft tissue, obscuring the ability to assess for JVD. No nuchal rigidity is appreciated. CHEST: Atraumatic with symmetric rise. HEART: S1, S2. Tachycardic as above with sluggish cap refill in distal extremities. LUNGS: With diminished breath sounds bilaterally. No appreciable wheezes or crackles. ABDOMEN: Somewhat protuberant. He is diffusely tender to light palpation particularly in the lower quadrants. He does have some evidence of rebound and guarding consistent with peritonitis. His diverting ileostomy is clean and without evidence of erythema or discharge. : Normal external male genitalia. A Perez catheter is indwelling and draining a minimal amount of translucent urine. EXTREMITIES: With trace edema pretibially which pits. He has no clubbing or cyanosis. LYMPHATIC: Unremarkable. No palpable adenopathy. NEUROLOGIC: Exam is grossly intact. He has mild septic encephalopathy, but moves all four extremities without difficulty and has intact sensory, motor function, and cognition gait and coordination were not evaluated. PSYCHIATRIC: Exam is appropriate to situation. LABORATORY DATA: Personal review of diagnostic workup completed today in the emergency department includes a negative urinalysis with the exception of glucosuria, leukopenia at 2.9 with delta 8.2 from yesterday. Hemoglobin and hematocrit are stable at 14.9 and 44.7, and platelet count is adequate at 385. Metabolic profile is significant for acute kidney injury with a creatinine of 1.54 (delta 0.76 from 05/10/2017) with a calculated GFR of 51 mL per minute. He is hyperglycemic with a glucose of 257 in the setting of known insulin- dependent diabetes in the setting of critical illness. He has mild hypoalbuminemia at 2.8. Normal transaminases and negative lipase and a negative troponin. His lactate level is markedly elevated at 6.2. An arterial blood gas this evening shows pH of 7.42, PaCO2 of 29, Consultation Report [place] [id number] [facility] [place]. [address] NAME: CLEMIDALIA JEY : 61 STATUS : ADM IN [facility]#: [id number] AGE: 51 ADM/REG DATE : 05/11/17 MR#: [id number] REPORT SERV DATE: 05/11/17 DICTATED BY: JACQUELINE LONGO DATE: 05/11/17 REPORT STATUS : Draft TRANSCRIBED BY: MODL DATE: 05/11/17 PaO2 of 62, negative 4.7 base excess, calculated bicarb at 18.5, and oxygen saturation of 91.7%. This represents metabolic acidosis with respiratory compensation. His cortisol level is 54.7. His procalcitonin level is greater than 200. IMAGING REVIEW: CT of the abdomen and pelvis shows small amount of intraperitoneal extraluminal gas to the right of the rectum consistent with postoperative changes, a small scattered amount of pneumoperitoneum in both paracolic gutters and below the anterior right diaphragm, low-density ascites along the margin of the liver and spleen and both pericolic gutters, some thickening of the small bowel diffusely with mild thickening of the descending and sigmoid colon, and a dilated bladder (prior to Perez insertion). A chest x-ray shows diffuse increase in hazy interstitial markings consistent with mild pulmonary edema likely secondary to volume administration following IV fluid resuscitation in the emergency department. No focal infiltrates are appreciated. A PICC line projects with the tip in the right atrium and extends into the right arm. An EKG shows sinus tach with no appreciable ST elevation or depression by my assessment. Blood cultures were collected and are pending. A urinalysis was performed. IMPRESSION: 1. Acute hypoxemic respiratory failure in the setting of septic shock. 2. Septic shock most likely intraabdominal source based on negative urinalysis, chest x- ray, and positive abdominal exam in the setting of recent surgery (postop day 5). 3. Rectal cancer, status post robotic proctectomy with diverting ileostomy and reanastomosis. 4. Metabolic acidosis with respiratory compensation as above. 5. Mild dehydration, status post 4 L of volume resuscitation in the emergency department. 6. Leukopenia, which is new. 7. Acute kidney injury likely secondary to acute tubular necrosis. 8. Hyperglycemia in the setting of diabetes and critical illness. 9. Hypoalbuminemia. 10.Additional past medical history as above. PLAN: We have already admitted Mr. Nj to the MICU where he we closely monitored. A PICC line has been placed, and we will continue to titrate Levophed and as needed vasopressin to maintain adequate perfusion. He has already been started on stress dose steroids. He is currently being evaluated by the surgical team for possible re-exploration and washout in the operating room this evening, and we will follow up on their recommendations. Should he return to the operating room, he will be intubated by anesthesia and an arterial line will be placed for close monitoring, and he will be kept on the ventilator overnight at minimum as he does have the potential to become more septic after instrumentation. He is already on meropenem, and we have added vancomycin for resistant gram-positive coverage, and we will deescalate based on culture data when appropriate. We will hold pharmacologic DVT prophylaxis tonight in light of likely trip back to the operating room this evening and resume when appropriate and cover him with PPI for stress ulcer prophylaxis in the setting of critical illness and underlying GERD. He is a full code. Consultation Report [address] [place] [address] NAME: IDALIA NJ : 61 STATUS : ADM IN [facility]#: [id number] AGE: 51 ADM/REG DATE : 05/11/17 MR#: [id number] REPORT SERV DATE: 05/11/17 DICTATED BY: JACQUELINE LONGO DATE: 05/11/17 REPORT STATUS : Draft TRANSCRIBED BY: RAMA DATE: 05/11/17 This case was discussed by telephone with Dr. Amin, who is his primary surgical attending as well as resident, Dr. Lai Baugh; bedside nursing staff; and the patient's family. Approximately 74 minutes of critical care time assessing, stabilizing, and coordinating care in the MICU as well as in the emergency department earlier this afternoon excluding procedures. We will follow along with you. Please call with questions. YANNICK/RAMA Jacqueline Longo MD / [id number]
--- NOTE | ~2017-05-11 | DS ---
Discharge Summary [facility] [address] [place]. [address] NAME: IDALIA NJ : 61 STATUS : DIS IN PAT#: [id number] AGE: 51 ADM/REG DATE : 05/11/17 MR#: [id number] REPORT SERV DATE: 05/30/17 DICTATED BY: SCOOTER AMIN DATE: 05/29/17 REPORT STATUS : Draft TRANSCRIBED BY: RAMA DATE: 05/29/17 Data Collection from hospitalization DISCHARGE DIAGNOSES: 1. Peritoneal signs and sepsis with septic shock and anastomotic leak. 2. Diabetes. 3. Hypertension. 4. Rectal cancer. 5. Gastroesophageal reflux disease. CONSULTATIONS: Ayana Sandra MD. PROCEDURES PERFORMED: 1. Exploratory laparotomy with end colostomy and extensive washout on 05/11/2017. 2. CT scan of the abdomen and pelvis with contrast on 05/11/2017. PATHOLOGY: Neorectum excision - transmural perforation with associated abscess formation, no dysplasia or malignancy identified, multiple benign pericolic lymph nodes. MEDICATIONS: Tylenol caplet 1000 mg every six hours, Cipro 500 mg twice a day, Lantus 30 units at bedtime, Humalog 10 units subcutaneously before meals, Synthroid 200 mcg every morning, Zestoretic one tablet every morning, Glucophage 500 mg twice a day, Flagyl 500 mg every eight hours, Singulair 10 mg at bedtime, Prilosec 20 mg twice a day as needed, Roxicodone 5 mg every four hours as needed, and Zocor 20 mg at bedtime. CONDITION AT DISCHARGE: Stable. DISPOSITION: The patient was discharged home to be followed by home health care on a 2000- calorie diabetic diet with activities as instructed. He would follow up with me the week following discharge. HOSPITAL COURSE: This is a 51-year-old man who is postop day #5 from robotic proctectomy, coloanal anastomosis and diverting ileostomy. The patient had been discharged on the day prior to this admission after tolerating his diet and doing quite well. He was up ambulating and voiding on his own and had no abdominal tenderness. On the day of this admission, he had worsening acute onset of abdominal pain, hypertension, and tachycardia and came to the emergency department. He was admitted to the hospital at this time for further evaluation and treatment. Upon admission, his white count was 2.9. Urinalysis was negative. IV fluids were started as well as IV antibiotics. A CT scan of the abdomen and pelvis with contrast was performed. Initially, he has not had peritoneal signs and felt better after placement of a Perez catheter for urinary retention. He became increasingly septic throughout the day and did develop peritoneal signs. He was seen by Dr. Ayana Sandra regarding septic shock. The patient continued to have downward trending blood pressure despite 4 liters of intravenous crystalloid and a PICC line was inserted for anticipated need of vasopressor orders. He was ultimately started on Levophed and transferred to the MICU. His antibiotic coverage was broadened to include vancomycin and he was reevaluated by Surgery. His CT scan had shown Discharge Summary [address] [address] NAME: IDALIA NJ : 61 STATUS : DIS IN PAT#: [id number] AGE: 51 ADM/REG DATE : 05/11/17 MR#: [id number] REPORT SERV DATE: 05/30/17 DICTATED BY: SCOOTER AMIN DATE: 05/29/17 REPORT STATUS : Draft TRANSCRIBED BY: RAMA DATE: 05/29/17 intraabdominal air and questionable area of ischemia in the small bowel. He was taken to the operating room where he underwent the above-mentioned procedure. He tolerated this well, and there were no complications. A PICC line had been inserted. On postop day #1, he was still on Levophed and vasopressor. Ventilator weaning was going to be performed. Chest x-ray showed atelectasis and vascular congestion. Sliding scale insulin was added to his regimen. Synthroid was also added. An echocardiogram was performed. White count was 12.5. Ventilator weaning was performed. On 05/14/2017, he had been extubated. He had no ostomy output. White count had increased to 18. The NG tube was going to be clamped. Creatinine level was now 1.03. Hemoglobin A1c was 10.9. Sliding scale insulin continued. Synthroid was continued. He was evaluated by Physical Therapy. The next day, he said he was feeling better. Sips of clear liquids were started. We encouraged him to ambulate. Discharge planning was performed. Steroids were being weaned. On 05/16/2017, he did have an ostomy output. He said he was feeling better. Steroids were stopped. His diet was advanced. Discharge instructions were given. Due to his improved and stable condition, he was discharged home to be followed by home health care with the above-stated instructions. Information collected by: Jalyn Pathak I submit the above information as my discharge summary. TG/MODL Scooter Amin MD / [id number] CC: MD Tapan No
--- NOTE | ~2017-05-11 | OP ---
Record Of Operation [facility] [address]. [address] NAME: IDALIA NJ : 61 STATUS : ADM IN [facility]#: [id number] AGE: 51 ADM/REG DATE : 05/11/17 MR#: [id number] REPORT SERV DATE: 05/12/17 DICTATED BY: SCOOTER AMIN DATE: 05/12/17 REPORT STATUS : Draft TRANSCRIBED BY: MODL DATE: 05/12/17 DATE OF PROCEDURE: 05/11/2017 PREOPERATIVE DIAGNOSIS: Peritoneal signs and sepsis with septic shock. POSTOPERATIVE DIAGNOSIS: Peritoneal signs and sepsis with septic shock and anastomotic leak. PROCEDURE: Exploratory laparotomy with end colostomy and extensive washout. COMPLICATIONS: None. IV FLUIDS: 3.5 L of crystalloid. ESTIMATED BLOOD LOSS: 50. URINE OUTPUT: 200. SPECIMEN: Distal neorectum. FINDINGS: The patient had an obvious anastomotic leak on rigid proctoscopy with ischemia of the neorectum or with perhaps some mild ischemia of the mucosa of the neorectum. Though I attempted to save the anastomosis when trying to place a drain through the hole, the entire right lateral aspect of the anastomosis dehisced and it became clear that the anastomosis was not salvageable. INDICATIONS: This is a 51-year-old male who about a week ago underwent a robotic proctectomy with end-to-side coloanal anastomosis and diverting loop ileostomy. He was actually discharged yesterday, feeling great and doing very well. He had sudden onset of abdominal pain earlier today, and though he initially did not have peritoneal signs and felt better after placement of a Perez catheter for urinary retention, despite antibiotics, he became increasingly septic throughout the day and did develop peritoneal signs. He was therefore taken urgently to the operating room. PROCEDURE IN DETAIL: Preoperatively, the patient was definitively identified in the holding area. It was confirmed that a signed consent was on chart. The patient was then transferred to the operating room. I had an extensive informed consent discussion with both he and two of his family members regarding the risk of bleeding, infection, damage to structures in his abdomen, need for further procedures, need for ostomy, and even the risk of and rare cases. They verbalized their willingness to proceed and a signed consent was on the chart. After induction of general endotracheal anesthesia and the patient having already received intravenous antibiotics, he was prepped and draped in normal sterile fashion in the lithotomy position with both arms extended and appropriate padding to all pressure points. Initial rigid proctoscopy demonstrated only lots of stool and it was difficult to see the anastomosis. We proceeded with exploratory laparotomy. A midline incision was marked and Record Of Operation [facility] [address]. [address] NAME: IDALIA NJ : 61 STATUS : ADM IN PAT#: [id number] AGE: 51 ADM/REG DATE : 05/11/17 MR#: [id number] REPORT SERV DATE: 05/12/17 DICTATED BY: SCOOTER AMIN DATE: 05/12/17 REPORT STATUS : Draft TRANSCRIBED BY: MODL DATE: 05/12/17 performed sharply. Bovie electrocautery was used to carry the dissection down to the level of fascia, which was then sharply entered and the peritoneum was likewise sharply entered. Diffuse purulence was immediately noted. Cultures were sent for a Gram stain and culture. We rinsed out the abdomen in total with probably 12 L of warm irrigation fluid. We performed an extensive examination. His right colon at least in the cecal area and hepatic flexure appeared normal. His transverse colon appeared completely normal. All of the small bowel appeared normal. The descending colon appeared normal to where it entered the pelvis. I then went back below and again performed rigid proctoscopy with extensive suctioning of stool. I performed rigid proctoscopy to 10 cm and although the mucosa appeared viable, it was somewhat mottled and cobblestoned and dusky in appearance. I slowly withdrew the level of the anastomosis and clearly saw about a 1 cm hole in the right anterolateral aspect of the anastomosis. My initial plan was to rinse out the abdomen, widely drain it and place a transrectal drain through this hole to drain the abscess cavity, but while attempting to do this the entire right lateral aspect of the anastomosis completely dehisced and there were no bleeding whatsoever from the mucosal line. Therefore, I elected to take down the anastomosis because I was confident it would not be able to heal with any sort of viability or acceptable function. Blunt dissection down the pelvis easily disrupted the rest of the anastomosis, which was then brought up into the abdomen. We inspected the blood supply and found that it appeared the inferior mesenteric vein had completely clotted. We sharply dissected back until we did find some bleeding vessels about 10 or 15 cm back from the tip of the anastomosis. We cleared off the mesentery at this point, and divided with a blue load JOSE GUADALUPE stapler. The specimen was sent for permanent pathology. We finished rinsing out the abdomen and inspected for hemostasis. We created an omental flap by dissecting the omentum off the transverse colon on the left side. We attempted to place it lateral to the ileostomy, but failed at this, so we simply brought the omental flap down the midline of the abdomen down deep in the pelvis. I placed a 16-Nepali Mallinckrodt catheter through the anus into the pelvic abscess cavity and placed the greater omentum on top of this after rinsing it out adequately. This was secured in place with 2-0 nylon suture. I placed an additional two 19-Nepali Tyson drains through separate stab incisions on the right and left lower quadrant. The right one going down into the pelvis on top of the omentoplasty and the left going up the left lateral gutter. We created a colostomy site by excising a disc of tissue at the previously marked location and then divided the anterior and posterior rectus sheaths vertically to admit three fingerbreadths. The distal colon was brought through this area. We had to trim off additional fat in order to pass it through. Eventually, we were able to do so. We then closed the midline incision with running #1 PDS suture from both ends and tied centrally. The wound was rinsed out and closed loosely with parris. The both drains had been secured with 2-0 nylon suture. We then turned our attention to maturing the colostomy. The initial staple line was resected, but we found absolutely no blood flow on the mucosa. We resected back approximately another 3 or 4 cm before we found some blood supply to the mucosal edges. Although it still was not optimal, I decided to stop resecting at this level. The patient was on high levels of Levophed, which likely got vasoconstriction, and I felt that the ostomy would probably be viable. It was matured. It was Brooked in about a centimeter or so with interrupted 3-0 Vicryl sutures. Ostomy appliances were placed and the patient was transferred after placement of lines by the Anesthesia team, the patient was transferred to the intensive care unit in critical condition still on pressors. Record Of [facility] [address] [place]. [address] NAME: IDALIA NJ : 61 STATUS : ADM IN PAT#: [id number] AGE: 51 ADM/REG DATE : 05/11/17 MR#: [id number] REPORT SERV DATE: 05/12/17 DICTATED BY: SCOOTER AMIN DATE: 05/12/17 REPORT STATUS : Draft TRANSCRIBED BY: MODL DATE: 05/12/17 ECN/MODL Scooter Amin MD / [id number] CC: MD Tapan No
--- NOTE | ~2017-05-11 | HP ---
History And Physical [address] [address] NAME: IDALIA [place] : 61 STATUS : ADM IN [facility]#: [id number] AGE: 51 ADM/REG DATE : 05/11/17 MR#: [id number] REPORT SERV DATE: 05/11/17 DICTATED BY: SCOOTER AMIN DATE: 05/11/17 REPORT STATUS : Draft TRANSCRIBED BY: MODL DATE: 05/11/17 DATE OF ADMISSION: 05/11/2017 ATTENDING SURGEON: Scooter Amin M.D. RESIDENT: Lai Baugh M.D. HISTORY OF PRESENT ILLNESS: This is a 51-year-old male with postop day 5 from robotic proctectomy, coloanal anastomosis, and diverting ileostomy by Dr. Pavan Dave, and was discharged home yesterday after tolerating diet and doing quite well. He was up ambulating and voiding on his own, had no abdominal tenderness. Today, he has worsening acute onset of abdominal pain, hypertension, and tachycardia, came to the emergency department. PAST MEDICAL HISTORY: 1. Diabetes. 2. Rectal carcinoma, T1 rectal cancer. PAST SURGICAL HISTORY: As above. FAMILY HISTORY: Noncontributory. MEDICATIONS: Please see med rec. REVIEW OF SYSTEMS: 10-point review is negative except for mentioned in HPI. PHYSICAL EXAMINATION: VITAL SIGNS: Heart rate 120, blood pressure 100/50, respirations 18, O2 saturation 96% on 2 L. GENERAL: Alert and oriented x3. The patient appears uncomfortable. HEENT: Normocephalic, atraumatic. NECK: Supple. No lymphadenopathy. CARDIOVASCULAR: Tachycardic. LUNGS: Clear. ABDOMEN: Diffusely tender in the epigastrium and lower quadrants. No rebound or tenderness present. No peritoneal signs. Ileostomy viable. NEURO: Intact. LABORATORY VALUES: Lactate 6.2, BUN and creatinine 17 and 1.54, glucose 257. White blood cell count is 2.9. Urinalysis is negative. ASSESSMENT AND PLAN: This is a 51-year-old male, postop day 5 from robotic proctectomy, coloanal anastomosis with diverting ileostomy with acute onset of abdominal pain, hypertension tachycardia, and leukopenia. PLAN: We will admit the patient for IV fluids, IV antibiotics. We will check CT abdomen and History And Physical [address] [address] NAME: IDALIA [place] : 61 STATUS : ADM IN PAT#: [id number] AGE: 51 ADM/REG DATE : 05/11/17 MR#: [id number] REPORT SERV DATE: 05/11/17 DICTATED BY: SCOOTER AMIN DATE: 05/11/17 REPORT STATUS : Draft TRANSCRIBED BY: MODL DATE: 05/11/17 pelvis to rule out intraabdominal abscess. DICTATED BY: Lia Baugh MD CB/RAMA Scooter Amin MD / [id number] CC: Scooter Amin MD
[~2017-05-11 11:48] MED LIST changes: +ACET500CAP PO; +PCET PO
[2017-05-11 12:24] LABS: ASCORBIC ACID (UR NOT ORDER) NEG (NEG); BILIRUBIN, URINE NEGATIVE (NEG); ER URINALYSIS TAT 0 Hrs 09 Mins; KETONE, URINE 20 MG/DL (NEG); LEUKOCYTE ESTERASE(NOT OR NEG (NEG); NITRITE (URINE) NEG (NEG); WBC (NOT ORDERED) (RFLEX) 3 (0-5)
[2017-05-11 13:41] LABS: BASOPHILS 0 %; EOSINOPHILS 0.3 %; EOSINOPHILS ABSOLUTE 0.01 10/3/uL (0.0-0.53); IMMATURE GRANULOCYTES 1.4 %; IMMATURE GRANULOCYTES ABSOLUTE 0.04 10/3/uL (0.0-0.11); LYMPHOCYTES 22.6 %; LYMPHOCYTES ABSOLUTE 0.65 10/3/uL (0.67-4.30); MEAN CORPUS HGB CONC 33.3 g/dL (32.0-36.0); MEAN CORPUSCULAR HEMOGLOB 29.1 pg (26.0-34.0); MEAN CORPUSCULAR VOLUME 87.3 fL (80-100); MEAN PLATELET VOLUME 9.5 fL (9.2-13.0); MONOCYTES 2.4 %; MONOCYTES ABSOLUTE 0.07 10/3/uL (0.21-1.20); NEUTROPHILS 73.3 %; NEUTROPHILS ABSOLUTE 2.11 10/3/uL (2.02-8.40); RBC DISTRIBUTION WIDTH 12.2 % (12.0-16.0)
[2017-05-11 13:42] LABS: RED CELL COUNT 5.12 10/6/uL (4.7-6.1); WHITE BLOOD CELLS 2.9 10/3/uL (4.5-10.5)
[2017-05-11 13:43] LABS: ER CBC TAT 0 Hrs 12 Mins; HEMATOCRIT 44.7 % (40.0-51.0); HEMOGLOBIN 14.9 g/dL (13.6-17.8); MANUAL DIFF NO %; PLATELET COUNT 385 10/3/uL (150-400)
[2017-05-11 13:49] LABS: BUN (BLOOD UREA NITROGEN) 17 MG/DL (6-23); CHLORIDE, SERUM 100 MMOL/L (96-112); CO2 (CARBON DIOXIDE) 24 MMOL/L (24-34); SGOT(AST) 12 U/L (5-40); SGPT(ALT) 18 U/L (5-65); SODIUM, SERUM 138 MMOL/L (135-148); TOTAL PROTEIN 6.7 G/DL (6.0-8.5); TROPONIN I <0.02 NG/ML (<0.05)
[2017-05-11 13:50] LABS: A/G RATIO 0.7 (0.7-1.9); ALBUMIN 2.8 G/DL (3.5-5.0); ALKALINE PHOSPHATASE 82 U/L (45-117); CALCIUM, SERUM 9.5 MG/DL (8.5-10.4); CREATININE 1.54 MG/DL (0.70-1.30); GFR AFRICAN AMERICAN 59 ML/MIN (>=60); GFR NON AFRICAN AMERICAN 51 ML/MIN (>=60); GLOBULIN 3.9 G/DL (2.5-4.1); GLUCOSE, SERUM 257 MG/DL (60-99)
[2017-05-11 17:05] LABS: ASCORBIC ACID (UR NOT ORDER) NEG (NEG); BILIRUBIN, URINE NEGATIVE (NEG); KETONE, URINE TRACE MG/DL (NEG); LEUKOCYTE ESTERASE(NOT OR NEG (NEG); WBC (NOT ORDERED) (RFLEX) 1 (0-5)
[2017-05-11 18:21] LABS: ALLENS TEST Pos; BE (BASE EXCESS) -4.7 MEQ/L (0 +/- 2.5); CARBOXYHEMOGLOBIN 1.5 % (0-3); HCO3 (ACTUAL BICARBONATE) 18.5 MEQ/L (23-27); INSTRUMENT SERIAL # 8087; METHEMOGLOBIN 0.2 % (0-3); O2 CONTENT 16.5 VOL% (18-24); OPERATOR ID 14947; PCO2 (CO2 TENSION) 29 MMHG (35-45); PO2 (O2 TENSION) 62 MMHG (79-93); SAMPLE Arterial; pH 7.42 (7.37-7.43)
[2017-05-12 04:00] LABS: CARBOXYHEMOGLOBIN 0.6 % (0-3); HCO3 (ACTUAL BICARBONATE) 17.2 MEQ/L (23-27); HEMOBLOGIN CONTENT 13.6 G/DL (14-18); INSTRUMENT SERIAL # 8083; METHEMOGLOBIN 0.2 % (0-3); MODE CMV; O2 CONTENT 18.9 VOL% (18-24); OPERATOR ID 17370; PCO2 (CO2 TENSION) 38 MMHG (35-45); PO2 (O2 TENSION) 143 MMHG (79-93); SAMPLE Arterial; TIDAL VOLUME 550 ML; pH 7.27 (7.37-7.43)
[2017-05-12 04:37] LABS: A/G RATIO 0.5 (0.7-1.9); ALBUMIN 1.5 G/DL (3.5-5.0); ALKALINE PHOSPHATASE 49 U/L (45-117); BUN (BLOOD UREA NITROGEN) 19 MG/DL (6-23); CALCIUM, SERUM 7.3 MG/DL (8.5-10.4); CHLORIDE, SERUM 107 MMOL/L (96-112); CO2 (CARBON DIOXIDE) 18 MMOL/L (24-34); CREATININE 1.78 MG/DL (0.70-1.30); GFR AFRICAN AMERICAN 49 ML/MIN (>=60); GFR NON AFRICAN AMERICAN 43 ML/MIN (>=60); GLOBULIN 2.9 G/DL (2.5-4.1); GLUCOSE, SERUM 335 MG/DL (60-99); PHOSPHORUS, SERUM 5.9 MG/DL (2.5-4.5); POTASSIUM, SERUM 4.5 MMOL/L (3.5-5.3); SGOT(AST) 33 U/L (5-40); SGPT(ALT) 25 U/L (5-65); SODIUM, SERUM 138 MMOL/L (135-148); TOTAL BILIRUBIN 0.6 MG/DL (0-1.2); TOTAL PROTEIN 4.4 G/DL (6.0-8.5)
[2017-05-12 04:38] LABS: HEMOGLOBIN 13.4 g/dL (13.6-17.8); MEAN CORPUS HGB CONC 33.8 g/dL (32.0-36.0); MEAN CORPUSCULAR HEMOGLOB 29.4 pg (26.0-34.0); MEAN CORPUSCULAR VOLUME 87.1 fL (80-100); MEAN PLATELET VOLUME 9.9 fL (9.2-13.0); PLATELET COUNT 387 10/3/uL (150-400); RBC DISTRIBUTION WIDTH 12.5 % (12.0-16.0); RED CELL COUNT 4.56 10/6/uL (4.7-6.1); WHITE BLOOD CELLS 3.8 10/3/uL (4.5-10.5)
[2017-05-12 04:43] LABS: HEMATOCRIT 39.7 % (40.0-51.0); MANUAL DIFF YES %
[2017-05-12 07:12] LABS: EOSINOPHILS 1 %; EOSINOPHILS ABSOLUTE (CALC) 0.04 10/3/uL (0.0-0.53); IMMATURE GRANS ABSOLUTE (CALC) 0.49 10/3/uL (0.0-0.11); LYMPHOCYTES 18 %; LYMPHOCYTES ABSOLUTE (CALC) 0.68 10/3/uL (0.67-4.30); METAMYELOCYTES 10 %; MONOCYTES 8 %; MYELOCYTES 3 %; NEUTROPHILS ABSOLUTE (CALC) 2.28 10/3/uL (2.02-8.40); TOTAL NUCLEATED CELLS 100
[2017-05-12 07:13] LABS: BAND NEUTROPHILS 40 %; PLATELET ESTIMATE ADQ (ADEQUATE); RBC MORPHOLOGY NORM (NORMAL); SEGMENTED NEUTROPHIL (0) 20 %
[2017-05-12 10:28] LABS: FREE T4 1.11 NG/DL (0.76-1.46); ULTRASENSITIVE TSH 0.336 MCIU/ML (0.358-3.740)
[2017-05-12 16:34] LABS: ALLENS TEST Pos; BE (BASE EXCESS) -4.1 MEQ/L (0 +/- 2.5); CARBOXYHEMOGLOBIN 0.4 % (0-3); HCO3 (ACTUAL BICARBONATE) 21.6 MEQ/L (23-27); HEMOBLOGIN CONTENT 12.9 G/DL (14-18); INSTRUMENT SERIAL # 8083; METHEMOGLOBIN 0.1 % (0-3); MODE CMV; OPERATOR ID 14382; PCO2 (CO2 TENSION) 42 MMHG (35-45); PO2 (O2 TENSION) 132 MMHG (79-93); SAMPLE Arterial; TIDAL VOLUME 550 ML; pH 7.33 (7.37-7.43)
[2017-05-12 18:44] LABS: BUN (BLOOD UREA NITROGEN) 20 MG/DL (6-23); CALCIUM, SERUM 7.5 MG/DL (8.5-10.4); CHLORIDE, SERUM 108 MMOL/L (96-112); CO2 (CARBON DIOXIDE) 23 MMOL/L (24-34); CREATININE 1.42 MG/DL (0.70-1.30); GFR AFRICAN AMERICAN 65 ML/MIN (>=60); GFR NON AFRICAN AMERICAN 56 ML/MIN (>=60); GLUCOSE, SERUM 315 MG/DL (60-99); PHOSPHORUS, SERUM 3.4 MG/DL (2.5-4.5); POTASSIUM, SERUM 4.3 MMOL/L (3.5-5.3); SODIUM, SERUM 139 MMOL/L (135-148)
[2017-05-12 19:03] LABS: HEMOGLOBIN 11.5 g/dL (13.6-17.8); MEAN CORPUS HGB CONC 33.6 g/dL (32.0-36.0); MEAN CORPUSCULAR VOLUME 86.4 fL (80-100); MEAN PLATELET VOLUME 9.4 fL (9.2-13.0); RBC DISTRIBUTION WIDTH 12.8 % (12.0-16.0); RED CELL COUNT 3.96 10/6/uL (4.7-6.1)
[2017-05-12 19:10] LABS: HEMATOCRIT 34.2 % (40.0-51.0); MANUAL DIFF YES %; PLATELET COUNT 232 10/3/uL (150-400); WHITE BLOOD CELLS 8.3 10/3/uL (4.5-10.5)
[2017-05-12 19:30] LABS: BAND NEUTROPHILS 41 %; IMMATURE GRANS ABSOLUTE (CALC) 0.91 10/3/uL (0.0-0.11); LYMPHOCYTES 18 %; LYMPHOCYTES ABSOLUTE (CALC) 1.49 10/3/uL (0.67-4.30); METAMYELOCYTES 7 %; MONOCYTES 11 %; MONOCYTES ABSOLUTE (CALC) 0.91 10/3/uL (0.21-1.20); MYELOCYTES 4 %; NEUTROPHILS ABSOLUTE (CALC) 4.98 10/3/uL (2.02-8.40); SEGMENTED NEUTROPHIL (0) 19 %; TOTAL NUCLEATED CELLS 100
[2017-05-12 19:31] LABS: PLATELET ESTIMATE ADQ (ADEQUATE)
[2017-05-12 19:32] LABS: GIANT PLATELET OCC; TOXIC GRANULATION 1+
[2017-05-12 19:33] LABS: BURR CELLS 1+ (3-10/OIF) (0-2/OIF)
[2017-05-13 04:09] LABS: BE (BASE EXCESS) 0.4 MEQ/L (0 +/- 2.5); CARBOXYHEMOGLOBIN 0.4 % (0-3); HEMOBLOGIN CONTENT 11.8 G/DL (14-18); INSTRUMENT SERIAL # 8083; METHEMOGLOBIN 0.1 % (0-3); MODE CMV; O2 CONTENT 16.3 VOL% (18-24); OPERATOR ID 17370; PCO2 (CO2 TENSION) 45 MMHG (35-45); PO2 (O2 TENSION) 111 MMHG (79-93); SAMPLE Arterial; TIDAL VOLUME 550 ML; pH 7.38 (7.37-7.43)
[2017-05-13 05:14] LABS: HEMATOCRIT 31.7 % (40.0-51.0); HEMOGLOBIN 10.4 g/dL (13.6-17.8); MANUAL DIFF YES %; MEAN CORPUS HGB CONC 32.8 g/dL (32.0-36.0); MEAN CORPUSCULAR HEMOGLOB 28.6 pg (26.0-34.0); MEAN CORPUSCULAR VOLUME 87.1 fL (80-100); MEAN PLATELET VOLUME 9.4 fL (9.2-13.0); NUCLEATED RED BLOOD CELLS 0.3 /100WBC (0-0); PLATELET COUNT 185 10/3/uL (150-400); RBC DISTRIBUTION WIDTH 12.8 % (12.0-16.0); RED CELL COUNT 3.64 10/6/uL (4.7-6.1); WHITE BLOOD CELLS 12.5 10/3/uL (4.5-10.5)
[2017-05-13 05:18] LABS: A/G RATIO 0.7 (0.7-1.9); ALBUMIN 2.1 G/DL (3.5-5.0); ALKALINE PHOSPHATASE 48 U/L (45-117); BUN (BLOOD UREA NITROGEN) 20 MG/DL (6-23); CALCIUM, SERUM 7.3 MG/DL (8.5-10.4); CHLORIDE, SERUM 110 MMOL/L (96-112); CO2 (CARBON DIOXIDE) 26 MMOL/L (24-34); CREATININE 1.16 MG/DL (0.70-1.30); GFR AFRICAN AMERICAN 83 ML/MIN (>=60); GFR NON AFRICAN AMERICAN 72 ML/MIN (>=60); GLOBULIN 2.9 G/DL (2.5-4.1); GLUCOSE, SERUM 210 MG/DL (60-99); PHOSPHORUS, SERUM 2.5 MG/DL (2.5-4.5); POTASSIUM, SERUM 3.9 MMOL/L (3.5-5.3); SGOT(AST) 23 U/L (5-40); SGPT(ALT) 22 U/L (5-65); SODIUM, SERUM 144 MMOL/L (135-148); TOTAL BILIRUBIN 0.8 MG/DL (0-1.2)
[2017-05-13 05:30] LABS: BAND NEUTROPHILS 34 %; IMMATURE GRANS ABSOLUTE (CALC) 0.75 10/3/uL (0.0-0.11); LYMPHOCYTES 10 %; LYMPHOCYTES ABSOLUTE (CALC) 1.25 10/3/uL (0.67-4.30); METAMYELOCYTES 6 %; MONOCYTES 8 %; PLATELET ESTIMATE ADQ (ADEQUATE); RBC MORPHOLOGY NORM (NORMAL); SEGMENTED NEUTROPHIL (0) 42 %; TOTAL NUCLEATED CELLS 100
[2017-05-13 10:19] LABS: CARBOXYHEMOGLOBIN 0.2 % (0-3); DEVICE NC; HCO3 (ACTUAL BICARBONATE) 25.7 MEQ/L (23-27); INSTRUMENT SERIAL # 8083; O2 CONTENT 15.1 VOL% (18-24); OPERATOR ID 35188; PCO2 (CO2 TENSION) 41 MMHG (35-45); PO2 (O2 TENSION) 90 MMHG (79-93); SAMPLE Arterial; pH 7.41 (7.37-7.43)
[2017-05-14 04:26] LABS: HEMATOCRIT 33.1 % (40.0-51.0); HEMOGLOBIN 10.8 g/dL (13.6-17.8); MEAN CORPUS HGB CONC 32.6 g/dL (32.0-36.0); PLATELET COUNT 186 10/3/uL (150-400); RBC DISTRIBUTION WIDTH 13.1 % (12.0-16.0); RED CELL COUNT 3.72 10/6/uL (4.7-6.1)
[2017-05-14 04:27] LABS: MANUAL DIFF YES %; WHITE BLOOD CELLS 18.8 10/3/uL (4.5-10.5)
[2017-05-14 04:31] LABS: BUN (BLOOD UREA NITROGEN) 22 MG/DL (6-23); CALCIUM, SERUM 7.6 MG/DL (8.5-10.4); CHLORIDE, SERUM 110 MMOL/L (96-112); CO2 (CARBON DIOXIDE) 26 MMOL/L (24-34); CREATININE 1.03 MG/DL (0.70-1.30); GFR AFRICAN AMERICAN 96 ML/MIN (>=60); GFR NON AFRICAN AMERICAN 83 ML/MIN (>=60); GLUCOSE, SERUM 200 MG/DL (60-99); POTASSIUM, SERUM 3.8 MMOL/L (3.5-5.3); SODIUM, SERUM 145 MMOL/L (135-148)
[2017-05-14 04:45] LABS: BAND NEUTROPHILS 28 %; LYMPHOCYTES 4 %; LYMPHOCYTES ABSOLUTE (CALC) 0.75 10/3/uL (0.67-4.30); MONOCYTES 2 %; MONOCYTES ABSOLUTE (CALC) 0.38 10/3/uL (0.21-1.20); NEUTROPHILS ABSOLUTE (CALC) 17.67 10/3/uL (2.02-8.40); PLATELET ESTIMATE ADQ (ADEQUATE); RBC MORPHOLOGY NORM (NORMAL); SEGMENTED NEUTROPHIL (0) 66 %; TOTAL NUCLEATED CELLS 100; TOXIC GRANULATION 1+
[2017-05-14 06:23] LABS: PHOSPHORUS, SERUM 1.8 MG/DL (2.5-4.5)
[2017-05-15 06:13] LABS: HEMATOCRIT 30.5 % (40.0-51.0); MEAN CORPUS HGB CONC 32.8 g/dL (32.0-36.0); MEAN CORPUSCULAR HEMOGLOB 29.1 pg (26.0-34.0); MEAN CORPUSCULAR VOLUME 88.7 fL (80-100); MEAN PLATELET VOLUME 10.2 fL (9.2-13.0); PLATELET COUNT 201 10/3/uL (150-400); RBC DISTRIBUTION WIDTH 13.4 % (12.0-16.0); RED CELL COUNT 3.44 10/6/uL (4.7-6.1); WHITE BLOOD CELLS 16.4 10/3/uL (4.5-10.5)
[2017-05-15 06:15] LABS: MANUAL DIFF YES %
[2017-05-15 06:24] LABS: CALCIUM, SERUM 8.2 MG/DL (8.5-10.4); CHLORIDE, SERUM 112 MMOL/L (96-112); CO2 (CARBON DIOXIDE) 25 MMOL/L (24-34); CREATININE 1.06 MG/DL (0.70-1.30); GFR AFRICAN AMERICAN 92 ML/MIN (>=60); GFR NON AFRICAN AMERICAN 80 ML/MIN (>=60); POTASSIUM, SERUM 3.9 MMOL/L (3.5-5.3); SODIUM, SERUM 144 MMOL/L (135-148)
[2017-05-15 06:25] LABS: BUN (BLOOD UREA NITROGEN) 28 MG/DL (6-23); GLUCOSE, SERUM 313 MG/DL (60-99)
[2017-05-15 06:33] LABS: BAND NEUTROPHILS 17 %; IMMATURE GRANS ABSOLUTE (CALC) 0.33 10/3/uL (0.0-0.11); LYMPHOCYTES 4 %; LYMPHOCYTES ABSOLUTE (CALC) 0.66 10/3/uL (0.67-4.30); METAMYELOCYTES 2 %; MONOCYTES 4 %; MONOCYTES ABSOLUTE (CALC) 0.66 10/3/uL (0.21-1.20); NEUTROPHILS ABSOLUTE (CALC) 14.76 10/3/uL (2.02-8.40); SEGMENTED NEUTROPHIL (0) 73 %; TOTAL NUCLEATED CELLS 100
[2017-05-15 06:34] LABS: PLATELET ESTIMATE ADQ (ADEQUATE); RBC MORPHOLOGY NORM (NORMAL)
[2017-05-16] MEDS ORDERED: FLAG500TAB PO (17:32)
[2017-05-16] MEDS ORDERED: CIP5 PO (17:32)
[2017-05-16] MEDS ORDERED: OXYCOD PO (17:32)
[2017-06-13] MEDS ORDERED: GLUCPH PO (21:18)
[2017-06-13] MEDS ORDERED: LEVOTHYROXIN125 MCG PO (21:19)
[2017-06-13] MEDS ORDERED: ZESTORETIC1 TA1 PO (21:19)
[2017-06-13] MEDS ORDERED: HUMALOGPEN SC (21:20)
[2017-06-13] MEDS ORDERED: LANTUSCART SC (21:20)
[2017-06-13] MEDS ORDERED: SINGULAIR1 PO (21:20)
[2017-06-13] MEDS ORDERED: PRILO PO (21:21)
[2017-06-13] MEDS ORDERED: ZOCOR20 PO (21:21)
[2017-06-13] MEDS ORDERED: ACET500CAP PO (21:22)
[2017-06-13] MEDS ORDERED: FLONASE NAS (21:23)
[2017-06-13] MEDS ORDERED: VITC500 PO (21:23)
[2017-06-16] MEDS ORDERED: FLAG500TAB PO (18:46)
[2017-06-16] MEDS ORDERED: LEVAQUIN5T PO (18:46)
[2017-06-16] MEDS ORDERED: PCET PO (18:47)
[2017-07-31] MEDS ORDERED: LEVAQUIN5T PO (08:48)
== END 2017-05-16 19:00 | disposition home or self-care (01) | DRG 329 ==
LOC: ER 11:48 → 5SO 15:11 → MIC 18:01 → 5SO 05-14 13:12
PROVIDERS: Emergency Medicine; Internal Medicine Critical Care Medicine; Surgery
PROC: 02HV33Z Insertion of Infusion Device into Superior Vena Cava, Percutaneous Approach (ICD-10-PCS; 2017-05-11)
PROC: 4A02X4A Measurement of Cardiac Electrical Activity, Guidance, External Approach (ICD-10-PCS; 2017-05-11)
PROC: 0DJD8ZZ Inspection of Lower Intestinal Tract, Via Natural or Artificial Opening Endoscopic (ICD-10-PCS; 2017-05-11)
PROC: 0D1 Gastrointestinal System, Bypass (ICD-10-PCS; principal; 2017-05-11 22:34)
DX: K91.89 Other postprocedural complications and disorders of digestive system (principal); A41.9 Sepsis, unspecified organism; J96.01 Acute respiratory failure with hypoxia; N17.0 Acute kidney failure with tubular necrosis; R65.21 Severe sepsis with septic shock; K65.1 Peritoneal abscess; K55.059 Acute (reversible) ischemia of intestine, part and extent unspecified; E87.2 Acidosis; I95.81 Postprocedural hypotension; I10 Essential (primary) hypertension; E86.0 Dehydration; E11.65 Type 2 diabetes mellitus with hyperglycemia; E03.9 Hypothyroidism, unspecified; Z93.2 Ileostomy status; Z87.442 Personal history of urinary calculi; Z82.49 Family history of ischemic heart disease and other diseases of the circulatory system; Z88.0 Allergy status to penicillin; Z79.899 Other long term (current) drug therapy; Z79.4 Long term (current) use of insulin; Z79.84 Long term (current) use of oral hypoglycemic drugs
CPT/HCPCS: 31720; 36569; 36600; 71010; 74177; 80048; 80053; 81001; 82330; 82533; 82805; 82962; 83605; 83690; 83735; 84100; 84145; 84439; 84443; 84484; 85025; 87040; 87070; 87075; 87077; 87102; 87186; 87205; 87641; 88307; 93306; 94002; 94003; 94640; 94660; 96365; 96375; 97116-GP; 97161-GP; 99291; A9270-GY; C1729; C1751; C9113; J0295; J0330; J0692; J1170; J1720; J2185; J2405; J3010; J3370; J3475; P9047; Q9967